=== PATIENT | male | born 1985 | race Two or more races ===

== ENCOUNTER 2019-02-24 18:03 | Emergency (ER) | payer SELFPAY ==
[~2019-02-24] VITALS: Ht 170.2 cm; Wt 81.6 kg
[2019-02-24 18:25] VITALS: BP 133/91
== END 2019-02-24 22:31 | disposition home or self-care (01) ==
LOC: ER 18:03
DX: J06.9 Acute upper respiratory infection, unspecified (principal); K02.9 Dental caries, unspecified; K04.7 Periapical abscess without sinus

== ENCOUNTER 2020-06-02 14:40 | Emergency (ER) | payer OTHER ==
[~2020-06-02] VITALS: Ht 172.7 cm; Wt 81.6 kg
[2020-06-02 18:04] VITALS: BP 128/74
== END 2020-06-02 18:05 | disposition home or self-care (01) ==
LOC: ER 14:40
DX: K52.9 Noninfective gastroenteritis and colitis, unspecified (principal); Z20.828 Contact with and (suspected) exposure to other viral communicable diseases
CPT/HCPCS: 36415; 71045; 87426; 99284; U0003